=== PATIENT | male | born 1960 | race African-American/Black ===

== ENCOUNTER 2017-07-31 09:02 | Emergency (ER) | payer MEDICAID ==
[~2017-07-31] VITALS: Ht 180.3 cm; Wt 86.0 kg
[2017-07-31] MEDS ORDERED: SODIUM CHLORIDE 0.9% 1,000 ML IV ONE (09:11)
[2017-07-31] MEDS ORDERED: SODIUM CHLORIDE FLUSH 10ML SYR IVF ONE (09:30)
[2017-07-31] MEDS ORDERED: DIPH,PERTUSS(ACELL),TET VAC/PF 0.5 ML IM-VACC ONE ×2 (09:30→10:27)
[2017-07-31 09:55] LABS: ASPARTATE AMINO TRANSFERASE 59 U/L (15-37); BLOOD UREA NITROGEN 11 mg/dL (7-18)
[2017-07-31 10:09] VITALS: BP 139/87
[2017-07-31 10:09] LABS: HEMATOCRIT 48.3 % (39.2-51.8); HEMOGLOBIN 16.1 g/dL (13.7-18.0); WHITE BLOOD COUNT 7.8 x10^3/uL (3.4-10)
[2017-07-31 10:33] LABS: DAU SCREEN DISCLAIMER
[2017-07-31] MEDS ORDERED: PHENYTOIN 100 MG CAPSULE PO ONE (11:00)
[2017-07-31] MEDS ORDERED: PLEASE ENTER ALLERGIES MC SCH ×2 (11:10)
[2017-07-31] MEDS ORDERED: LIDOCAINE 1%-EPI 1:100K, 20ML SQ ONE (11:30)
[2017-07-31] MEDS ORDERED: LIDOCAINE 1%, 20ML ONE (11:39)
== END 2017-07-31 12:28 | disposition home or self-care (01) ==
LOC: ED 12:22
DX: S01.81XA Laceration without foreign body of other part of head, initial encounter (principal); G40.909 Epilepsy, unspecified, not intractable, without status epilepticus; X58.XXXA Exposure to other specified factors, initial encounter; Y93.89 Activity, other specified; Y92.89 Other specified places as the place of occurrence of the external cause; Y99.8 Other external cause status
CPT/HCPCS: 12011; 36415; 70450; 72125; 80053; 80185; 80307; 85025; 90471; 90715; 93005; 96360; 99285; J7030